=== PATIENT | female | born 1965 | race Caucasian/White ===

== ENCOUNTER 2020-09-01 13:44 | Outpatient (REF) | payer OTHER, SELFPAY ==
--- NOTE | ~2020-09-01 | MM_ITS ---
EXAMINATION: MM SCREENING DIGITAL BREAST TOMOSYNTHESIS, BILATERAL CLINICAL INFORMATION: Screening. Asymptomatic. Remote bilateral reduction mammoplasty over 10 years ago. The lifetime risk of breast cancer based on the Tyrer-Cuzick Model is 5%. COMPARISON: Mammography: 05/28/2019, 07/23/2018, 07/22/2017 TECHNIQUE: Digital breast tomosynthesis is performed in both the craniocaudal and mediolateral oblique views along with computer-aided detection (CAD). Synthesized 2D images are generated from the tomosynthesis. FINDINGS: There are scattered areas of fibroglandular density (ACR BI-RADS breast composition Category b). There is no significant mass or architectural abnormality or abnormal calcifications. Parenchymal pattern is similar to prior studies. There is no developing density. No significant changes. MM/MM tomosynthesis screening BI IMPRESSION: No mammographic evidence of malignancy. ASSESSMENT: BI-RADS 1: Negative RECOMMENDATION: Routine annual mammography screening. This patient's information was entered into a reminder system with a target due date for their next mammogram.
== END 2020-09-01 13:45 | disposition home or self-care (01) ==
LOC: HO.MAMMO 13:44
PROVIDERS: Visit Provider Internal Medicine
DX: Z12.31 Encounter for screening mammogram for malignant neoplasm of breast (principal)
CPT/HCPCS: 77063; 77067

== ENCOUNTER 2021-09-04 13:56 | Outpatient (REF) | payer OTHER, SELFPAY ==
--- NOTE | ~2021-09-04 | MM_ITS ---
EXAMINATION: MM SCREENING DIGITAL BREAST TOMOSYNTHESIS, BILATERAL CLINICAL INFORMATION: Screening. Asymptomatic. Status post breast reduction surgery. The lifetime risk of breast cancer based on the Tyrer-Cuzick Model is 5.1%. COMPARISON: Mammography: September 01, 2020 and studies dating back to March 09, 2012 TECHNIQUE: Digital breast tomosynthesis is performed in both the craniocaudal and mediolateral oblique views along with computer-aided detection (CAD). Synthesized 2D images are generated from the tomosynthesis. FINDINGS: There are scattered areas of fibroglandular density (ACR BI-RADS breast composition Category b). There are no new significant masses, abnormal calcifications, or other abnormalities. Stable postsurgical change from reduction mammoplasty seen. MM/MM tomosynthesis screening BI IMPRESSION: There are no significant changes from prior study. ASSESSMENT: BI-RADS 2: Benign RECOMMENDATION: Routine annual mammography screening. This patient's information was entered into a reminder system with a target due date for their next mammogram.
== END 2021-09-04 13:57 | disposition home or self-care (01) ==
LOC: HO.MAMMO 13:56
PROVIDERS: PCP Internal Medicine; Visit Provider Internal Medicine
DX: Z12.31 Encounter for screening mammogram for malignant neoplasm of breast (principal)
CPT/HCPCS: 77063; 77067

== ENCOUNTER 2022-09-10 13:37 | Outpatient (REF) | payer OTHER, SELFPAY ==
--- NOTE | ~2022-09-10 | MM_ITS ---
EXAMINATION: MM SCREENING DIGITAL BREAST TOMOSYNTHESIS, BILATERAL CLINICAL INFORMATION: Screening. Asymptomatic. Bilateral implants are approximately 6 months ago. Remote prior reduction mammoplasty. The lifetime risk of breast cancer based on the Tyrer-Cuzick Model is 5%. COMPARISON: Mammography: 09/04/2021, 09/01/2020, 05/28/2019 TECHNIQUE: Digital mammography is performed in craniocaudal and mediolateral oblique views along with computer-aided detection (CAD). Digital breast tomosynthesis is performed in implant-displaced craniocaudal and implant-displaced mediolateral oblique views along with computer-aided detection (CAD). Synthesized 2D images are generated from the tomosynthesis. FINDINGS: There are scattered areas of fibroglandular density (ACR BI-RADS breast composition Category b). There are bilateral implants present since prior exam. The implant contours are smooth and unremarkable. Breast parenchyma shows no significant changes. No significant mass or architectural abnormality or abnormal calcifications. The skin contours are smooth. MM/MM tomosynthesis screen imp BI IMPRESSION: -No mammographic evidence of malignancy. -Bilateral implants, new from prior imaging 2021. ASSESSMENT: BI-RADS 2: Benign RECOMMENDATION: Routine annual mammography screening. This patient's information was entered into a reminder system with a target due date for their next mammogram.
== END 2022-09-10 13:38 | disposition home or self-care (01) ==
LOC: HO.MAMMO 13:37
PROVIDERS: PCP Internal Medicine; Visit Provider Internal Medicine
DX: Z12.31 Encounter for screening mammogram for malignant neoplasm of breast (principal)
CPT/HCPCS: 77063; 77067

== ENCOUNTER 2022-09-17 13:47 | Outpatient (REF) | payer OTHER, SELFPAY ==
--- NOTE | ~2022-09-17 | MM_ITS ---
EXAMINATION: BONE DENSITOMETRY CLINICAL INDICATION: Osteoporosis. COMPARISON: None (current study represents initial baseline exam). TECHNIQUE: Using a Predictify DXA System (software version: 13.1) manufactured by [employer], dual-energy x-ray absorptiometry was performed of the lumbar spine and left hip. The images are of good technical quality. Summary results are attached. FINDINGS: AP SPINE L1-L4: BMD 1.122 g/cm2, Z-score 0.8, T-score -0.5, normal. LEFT FEMUR, NECK: BMD 1.102 g/cm2, Z-score 1.8, T-score 0.5, normal. LEFT FEMUR, TOTAL: BMD 0.093 g/cm2, Z-score 1.7, T-score 0.7, normal. IDENTIFIED RISK FACTORS: Height loss, menopause, recurrent falls, secondary osteoporosis, tobacco user (current smoker). HISTORY OF FRACTURE: None listed. MEDICATIONS: None listed. MM/XR DEXA axial skeleton IMPRESSION: 1. DIAGNOSIS: Normal bone density based on the lowest T-score value of -0.5 in the lumbar spine applying World Health Organization criteria. 2. 10-YEAR FRACTURE RISK PREDICTION, FRAX: According to the guidelines, FRAX calculation should only be performed on patients in the osteopenia bone density category. Therefore, FRAX was not performed on this patient. 3. Treatment Recommendations: NOF guidelines recommend consideration for treatment in postmenopausal women and men age 50 and older presenting with the following: -A hip or vertebral (clinical or morphometric) fracture. -T-score less than or equal to -2.5 at the femoral neck or spine after appropriate evaluation to exclude secondary causes. -Low bone mass at the hip or spine and a 10-year fracture probability by FRAX of greater than or equal to 3% for hip fracture or greater than or equal to 20% for major osteoporotic fracture based on the [place] adapted WHO algorithm. 4. Other Recommendations: All treatment decisions require clinical judgment and consideration of individual patient factors, including patient preferences, comorbidities, previous drug use, risk factors not captured in the FRAX model (e.g. frailty, falls, vitamin D deficiency, increased bone turnover, interval significant decline in bone density) and possible under or overestimation of fracture risk by FRAX. FUTURE SCAN RECOMMENDATION: People with diagnosed cases of osteoporosis or at high risk for fracture should have regular bone mineral density tests. For patients eligible for Medicare, routine testing is allowed once every 2 years. The testing frequency can be increased to one year for patients who have rapidly progressing disease, those who are receiving or discontinuing medical therapy to restore bone mass, or have additional risk factors.
== END 2022-09-17 13:48 | disposition home or self-care (01) ==
LOC: HO.MAMMO 13:47
PROVIDERS: PCP Internal Medicine; Visit Provider Internal Medicine
DX: Z13.820 Encounter for screening for osteoporosis (principal); Z78.0 Asymptomatic menopausal state; M81.0 Age-related osteoporosis without current pathological fracture
CPT/HCPCS: 77080

== ENCOUNTER 2024-05-26 14:50 | Outpatient (REF) | payer OTHER, SELFPAY ==
--- OUTSIDE RECORDS SUMMARY | 2024-05-26 14:54 | XMS_ITS | Clinical Summary ---
Author Organization [facility] Address [address] [place] [address] Care Team Providers Care Foundry Patternmaker Name Role Phone Elfego Hewitt MD Primary Care Provider Unavail able Allergies Active Allergy Reactions Criticality Noted Date Comments Sulfa Antibiotics Hives Medium 08/09/2017 Medications Medication Sig Dispensed Refills Start Date End Date Status traZODone (DESYREL) 150 MG tablet 0 04/19/2021 Active lisinopril (PRINIVIL,ZESTRIL) tablet 10 mg 0 04/19/2021 Active atorvastatin (LIPITOR) tablet 20 mg Take 20 mg by mouth daily. 0 03/21/2021 Active minoxidil (LONITEN) 2.5 MG tablet 0 04/05/2021 Active omeprazole (PriLOSEC) 40 MG capsule Take 40 mg by mouth 2 (two) times a day. 0 01/19/2021 Active Family History Medical History Relation Name Comments Diabetes Father Cancer Mother Dementia Mother Diabetes Mother Hypertension Mother Parkinsonism Mother Relation Name Status Comments Father Mother Alive Social History Tobacco Use Types Packs/Day Years Used Date Smoking Tobacco: Never Smokeless Tobacco: Never Alcohol Use Standard Drinks/Week Comments Not Currently 0 (1 standard drink = 0.6 oz pur e alcohol) Sex and Gender Information Value Date Recorded Sex Assigned at Female 04/20/2021 2:34 PM EST Gender Identity Not on file Sexual Orientation Not on file Job Start Date Occupation Industry Not on file Not on file Not on file Last Filed Vital Signs Vital Sign Reading Time Taken Comments Blood Pressure - - Pulse - - Temperature - - Respiratory Rate - - Oxygen Saturation - - Inhaled Oxygen Concentration - - Weight 69.4 kg (153 lb) 04/23/2021 4:00 PM EST Height 152.4 cm (5') 04/23/2021 4:00 PM EST Body Mass Index 29.88 04/23/2021 4:00 PM EST Plan of Treatment Health Maintenance Due Date Last Done Comments Hepatitis B Vaccines (1 of 3 - 3-dose series) 1965 Hepatitis C Screening 1965 COVID-19 Vaccine (#1) 01/27/1968 Depression Screening 1979 BMI Counseling 07/27/1985 Preventative Health Evaluation 07/27/1985 Cervical Cancer Screening (P ap Smear) 07/27/1988 DTap / Tdap / Td (1 - Tdap) 04/28/2010 04/27/2010 Colon Cancer Screening (Colonoscopy) 07/27/2012 Breast Cancer Screening (Mammogram) 07/27/2017 Shingrix-Zoster Vaccine (1 of 2) 07/27/2017 Influenza Vaccine (#1) 2023 Pneumococcal Vaccine Aged Out No long er eligible based on patient's age to complete this topic RSV Ped < 20 months Aged Out No longe r eligible based on patient's age to complete this topic Care Teams Foundry Patternmaker Relationship Specialty Start Date End Date Elfego Hewitt MD PCP - General Internal Medicine 04/23/21
--- OUTSIDE RECORDS SUMMARY | 2024-05-26 14:54 | XMS_ITS | Clinical Summary ---
Author Organization [address] [facility] Address [address] [place] [address] Phone Care Team Providers Care Workforce Manager Name Role Phone Elfego Hewitt MD Primary Care Provider [phone] Allergies Active Allergy Reactions Criticality Noted Date Comments Sulfa (Sulfonamide Antibiotics) 02/05 Medications cholecalciferol (VITAMIN D-3) 1,250 mcg (50,000 unit) capsule TAKE 1 CAPSULE BY MOUTH 1 TIME A WEEK 4 Active omeprazole (PriLOSEC) [address] capsule Take 40 mg by mouth 2 times daily. Active ASCORBIC ACID, VITAMIN C, ORAL Take by mouth. Active NAPROXEN ORAL Take 500 mg by mouth. Active traZODone (DESYREL) 150 mg tablet Take 150 mg by mouth at bedtime. Active multivitamin (MULTIPLE VITAMINS ORAL) Take by mouth. Active vitamin E acetate (VITAMIN E ORAL) Take by mouth. Activ e ALBUTEROL INHL Inhale into the lungs. Active acetaminophen (TYLENOL 8 HOUR) 650 mg 8 hr tablet Take 3,000 mg by mouth. Active albuterol 2.5 mg /3 mL (0.083 %) nebulizer solution USE 3 ML VIA NEBULIZER FOUR TIMES DAILY NEEDED 3 Active amoxicillin (AMOXIL) 500 mg capsule 4 Active oxyCODONE (OXY-IR) 5 mg immediate release capsule Take 1 capsule (5 mg total) by mouth every 6 (six) hours if needed for severe pain for up to 10 doses. Max Daily Amount: 20 mg 10 capsule 5 Active Active Problems Problem Noted Date Diagnosed Date Back pain 02/06/2024 HIV (human immunodeficiency virus infection) 04/2023 Hyperlipidemia 02/06/2024 Overweight (BMI 25.0-29.9) 08/20/2021 DDD (degenerative disc disease), lumbar 07/22/19 21 GERD (gastroesophageal reflux disease) Nephrolithiasis 07/21/2020 Spinal stenosis 07/21/2020 Overview (02/06/2024): Cervical. DDD. Encounters Date Type Department Care Team Description 04/11/2024 10:01 AM EST - 04/11/2024 12:43 PM EST Emergency [facility] Emergency [address] [place] [address] Chronic left-sided low back pain with left-sided sciatica (Primary Dx) Discharge Disposition: Home or Self Care 03/08/2024 3:15 PM EST - 03/08/2024 11:59 PM EST Hospital Encounter [facility] MRI [address] [place] [address] Lumbar disc herniation Discharge Disposition: Home or Self Care from Last 3 Months Surgical History Surgery Date Site/Laterality Comments OTHER SURGICAL HISTORY 09/17/2021 PROCEDURE: ---- OTHER ----; COMMENT: Lap conversion of sleeve to gastric bypass Medical History Medical History Date Comments Hypertension DX:Hypertension Back pain DX:Back pain Insomnia DX:Insomnia Hyperlipidemia DX:Hyperlipidemi a HIV (human immunodeficiency virus infection) ([facility]) DX:HIV (human immunodeficien cy virus infection) ([facility]) Spinal stenosis 07/21/2020 DX:Spinal stenos is; COMMENT: Cervical, DDD Nephrolithiasis 07/21/2020 DX:Nephrolithias is GERD (gastroesophageal reflu x disease) 07/21/2020 DX:GERD (gastroesophageal re flux disease) DDD (degenerative disc disea se), lumbar 07/21/2020 DX:DDD (degenerative disc di sease), lumbar Tobacco use 07/21/2020 DX:Tobacco use Class 1 obesity due to exces s calories with serious comorbidity and body mass index (BMI) of 31.0 to 31.9 in adult 04/19/2020 DX:Class 1 obesity due to ex cess calories with serious comorbidity and body mass index (BMI) of 31.0 to 31.9 in adult; COMMENT: LABS: 03/14/20 PSYCH: 02/28/20 PCP/PHYSICAL: NUTRITION CLEARANCE: READY TO SUBMIT: SURGERY: Hx of bariatric surgery 09/17/2021 DX:Hx of bariatric surgery Family History Medical History Relation Name Comments Diabetes Father Alcohol abuse Dementia Mother Diabetes Mother Hypertension Mother Other: cancer of the large intestinew Mother Parkinson's Disease Mother Relation Name Status Comments Father Mother Alive Social History Tobacco Use Types Packs/Day Years Used Date Smoking Tobacco: Former Smokeless Tobacco: Never Alcohol Use Standard Drinks/Week Comments Yes 0 (1 standard drink = 0.6 oz pur e alcohol) Comments Unknown Sex and Gender Information Value Date Recorded Sex Assigned at Female 04/11/2024 8:51 AM EST Legal Sex Female 6:50 PM EST Gender Identity Female 04/11/2024 8:51 AM EST Sexual Orientation Not on file Obstetrics History Last Filed Vital Signs Vital Sign Reading Time Taken Comments Blood Pressure 115/73 04/11/2024 12:19 PM EST Pulse 67 04/11/2024 12:19 PM EST Temperature 36.6 ??C (97.9 ??F) 04/11/2024 12:[address] Respiratory Rate 17 04/11/2024 12:19 PM EST Oxygen Saturation 98% 04/11/2024 12:19 PM EST Inhaled Oxygen Concentration - - Weight 54 kg (119 lb) 04/11/2024 6:43 AM EST Height 152.4 cm (5') 04/11/2024 6:43 AM EST Body Mass Index 23.24 04/11/2024 6:43 AM EST Plan of Treatment Upcoming Encounters Date Type Department Care Team (Late st Contact Info) Description 06/01/2024 2:15 PM EST Office Visit Bariatric Surgery [facility] [address] [phone] Sulema Abad MD [address] [address] 09/09/2024 2:00 PM EDT Office Visit Bariatric Surgery [facility] [address] [phone] Sulema Abad MD 175 [facility] [address] [place] [address] Health Maintenance Due Date Last Done Comments Breast Cancer Screening 1965 Meningococcal ACWY Vaccine (1 - Risk 2-dose series) 07/27/1969 MMR Vaccines (1 of 2 - Risk 2-dose series) 07/27/1985 Hepatitis A Vaccines (1 of 2 - Risk 2-dose series) 07/27/1986 Hepatitis B Vaccines (1 of 3 - 19+ 3-dose series) 07/27/1986 Cervical Cancer Screening: Pap Smear 07/27/1988 Pneumococcal Vaccine: 50+ Years (2 of 2 - PCV) 10/03/2017 10/03/2016 Pneumococcal Vaccine: Pediatrics (0 to 5 Years) and At-Risk Patients (6 to 64 Years) (2 of 2 - PCV) 10/03/2017 10/03/2016 DTaP,Tdap,and Td Vaccines (2 - Td or Tdap) 04/27/2020 04/27/2010 COVID-19 Vaccine (3 - Pfizer risk series) 01/02/2021 12/05/2020, 11/14/2020 Colorectal Cancer Screening: Colonoscopy 03/09/2022 Depression Screening 03/09/2022 Hepatitis C Screening 03/09/2022 Social Influencers of Health Screening 03/09/2022 Cholesterol Screening (Lipid Panel) 03/14/2025 03/14/2020 Zoster Vaccines Completed 06/11/2023, 02/19/2023 Influenza Vaccine Completed 02/04/2024, , 02/15/2021, Additional history exists HIB Vaccines Aged Out No longer eligi ble based on patient's age to complete this topic HPV Vaccines Aged Out No longer eligi ble based on patient's age to complete this topic IPV Vaccines Aged Out No longer eligi ble based on patient's age to complete this topic Meningococcal B Vacine Aged Out No lo nger eligible based on patient's age to complete this topic RSV Immunization Patients Under 20 months Aged Out No longer eligible based on patient's age to complete this topic Varicella Vaccines Aged Out No longer eligible based on patient's age to complete this topic Procedures Procedure Name Priority Date/Time Associated Diagnosis Comments XR HIP 2-3 VIEWS LEFT STAT 04/11/2024 11:38 AM EST MR LUMBAR SPINE WO CONTRAST Routine 03/08/2024 3:55 PM EST Lumbar disc herniation LIPID PANEL Routine 03/14/2020 from Last 3 Months or Most Recently Relevant to Health Maintenance Results * XR Hip 2-3 Views Left (04/11/2024 11:38 AM EST) Anatomical Region Laterality Modality Lower Extremities, Hip Left Radiograp hic Imaging 04/11/2024 11:5 8 AM EST Impressions 04/11/2024 11:59 AM EST FINDINGS/IMPRESSION: No acute fracture or dislocation. ??Small corticated fragment adjacent to the left acetabulum, most likely related to old injury. ??Joint spaces are preserved. ??Degenerative changes seen at the sacroiliac joints. ??Mild soft tissue swelling lateral to the left hip. -------- FINAL REPORT -------- Dictated By: NAY STARKEY Dictated Date: 04/11/2024 11:58 ET Assigned Physician: NAY STARKEY Reviewed and Electronically Signed By: NAY STARKEY Signed Date: 04/11/2024 11:59 ET Workstation ID: [id number] Transcribed By: Self Edit Transcribed Date: 04/11/2024 11:58 ET Narrative 04/11/2024 11:59 AM EST XR HIP 2-3 VIEWS LEFT INDICATION: ??Pain TECHNIQUE: XR HIP 2-3 VIEWS LEFT COMPARISON: No priors available. Procedure Note Nay Starkey MD - 04/11/2024 XR HIP 2-3 VIEWS LEFT INDICATION: Pain TECHNIQUE: XR HIP 2-3 VIEWS LEFT COMPARISON: No priors available. IMPRESSION: FINDINGS/IMPRESSION: No acute fracture or dislocation. Small corticatedfragment adjacent to the left acetabulum, most likely related to oldinjury. Joint spaces are preserved. Degenerative changes seen at thesacroiliac joints. Mild soft tissue swelling lateral to the left hip. -------- FINAL REPORT -------- Dictated By: NAY STARKEY Dictated Date: 04/11/2024 11:58 ET Assigned Physician: NAY STARKEY Reviewed and Electronically Signed By: NAY STARKEY Signed Date: 04/11/2024 11:59 ET Workstation ID: [id number] Transcribed By: Self Edit Transcribed Date: 04/11/2024 11:58 ET Antonio AC IMG XR PROCEDURES Final Res ult * MR Lumbar Spine wo Contrast (03/08/2024 3:55 PM EST) Anatomical Region Laterality Modality L-spine, Spine Magnetic Resonan ce 03/09/2024 4:50 AM EST Impressions 03/09/2024 5:03 AM EST Multilevel lumbar spondylosis, as above, most prominent at L3-L4, L4-L5 and L5- S1; progressed from 2018. -------- FINAL REPORT -------- Dictated By: Samina Parsons Dictated Date: 03/09/2024 04:50 ET Assigned Physician: Samina Parsons Reviewed and Electronically Signed By: Samina Parsons Signed Date: 03/09/2024 05:03 ET Workstation ID: [id number] Transcribed By: Self Edit Transcribed Date: 03/09/2024 04:50 ET Narrative 03/09/2024 5:03 AM EST INDICATION: low back pain, disc herniation COMPARISON: ??August 2017 TECHNIQUE: Multiplanar, multisequence MRI was performed of the lumbar spine without IV contrast. FINDINGS: ?? Study assumes 5 lumbar type vertebral bodies. ??Grade 1 anterolisthesis of L4 on L5; slightly progressed from 2018. ??Normal grade 1 retrolisthesis of L2 on L3; new from prior. ??Left convex lumbar curvature with apex centered at L2-L3. ??Vertebral body heights are maintained. ??Conus terminates at L1. ??Bone marrow and cord signal is unremarkable. ??Multilevel disc desiccation extending from L2-S1. ??Specific findings are seen at the following levels: T12-L1:No significant spinal canal stenosis or neural foraminal narrowing seen on sagittal views. L1-L2:No significant spinal canal stenosis or neural foraminal narrowing seen on sagittal views. L2-L3:Mild diffuse disc bulge eccentric to the left and mild bilateral facet arthropathy which results in mild bilateral neural foraminal narrowing (left greater than right) with touching of the exiting left L2 nerve root; similar to prior. ??No significant spinal canal stenosis. L3-L4:Diffuse disc bulge with facet arthropathy which effaces the ventral thecal thecal sac and results in mild to moderate bilateral neural foraminal narrowing; progressed from prior. L4-L5:Uncovering of the disc with severe bilateral facet arthropathy and ligamentum flavum infolding which effaces the ventral thecal sac and results in mild spinal canal stenosis; progressed from prior and moderate bilateral neural foraminal narrowing and touches both exiting L4 nerve roots. L5-S1:Diffuse disc bulge with superimposed central disc protrusion and small annular fissure with bilateral facet arthropathy which results in moderate bilateral neural foraminal narrowing; progressed from prior. Miscellaneous: ??Visualized SI joints, paraspinal muscles and retroperitoneum are unremarkable. Procedure Note Samina Parsons MD - 03/09/2024 INDICATION: low back pain, disc herniation COMPARISON: August 2017 TECHNIQUE: Multiplanar, multisequence MRI was performed of the lumbarspine without IV contrast. FINDINGS: Study assumes 5 lumbar type vertebral bodies. Grade 1 anterolisthesis ofL4 on L5; slightly progressed from 2018. Normal grade 1 retrolisthesis ofL2 on L3; new from prior. Left convex lumbar curvature with apex centeredat L2-L3. Vertebral body heights are maintained. Conus terminates at L1.Bone marrow and cord signal is unremarkable. Multilevel disc desiccationextending from L2-S1. Specific findings are seen at the followinglevels: T12-L1:No significant spinal canal stenosis or neural foraminal narrowingseen on sagittal views. L1-L2:No significant spinal canal stenosis or neural foraminal narrowingseen on sagittal views. L2-L3:Mild diffuse disc bulge eccentric to the left and mild bilateralfacet arthropathy which results in mild bilateral neural foraminalnarrowing (left greater than right) with touching of the exiting left [id number] root; similar to prior. No significant spinal canal stenosis. L3-L4:Diffuse disc bulge with facet arthropathy which effaces the ventralthecal thecal sac and results in mild to moderate bilateral neuralforaminal narrowing; progressed from prior. L4-L5:Uncovering of the disc with severe bilateral facet arthropathy andligamentum flavum infolding which effaces the ventral thecal sac andresults in mild spinal canal stenosis; progressed from prior and moderatebilateral neural foraminal narrowing and touches both exiting L4 nerveroots. L5-S1:Diffuse disc bulge with superimposed central disc protrusion andsmall annular fissure with bilateral facet arthropathy which results inmoderate bilateral neural foraminal narrowing; progressed from prior. Miscellaneous: Visualized SI joints, paraspinal muscles andretroperitoneum are unremarkable. IMPRESSION: Multilevel lumbar spondylosis, as above, most prominent at L3-L4, L4-L5and L5- S1; progressed from 2018. -------- FINAL REPORT -------- Dictated By: Samina Parsons Dictated Date: 03/09/2024 04:50 ET Assigned Physician: Samina Parsons Reviewed and Electronically Signed By: Samina Parsons Signed Date: 03/09/2024 05:03 ET Workstation ID: [id number] Transcribed By: Self Edit Transcribed Date: 03/09/2024 04:50 ET Elfego Hewitt MD IMG MRI PROCEDURES Final Resul t * (ABNORMAL) Lipid panel (03/14/2020) LDL/HDL Ratio 6(A) 0 - 4 Triglycerides 164(A) 0 - 150 mg/dL Cholesterol 283(A) 0 - 200 mg/dL HDL 49 >=40 mg/dL LDL Cholesterol 202(A) 0 - 100 mg/dL Blood Venous blood specimen / Unknown Historical Provider LAB BLOOD ORDERABLES Rose l Result from Last 3 Months or Most Recently Relevant to Health Maintenance Insurance [facility] [employer] [place] [id number] Care Teams Workforce Manager Relationship Specialty Start Date End Date Elfego Hewitt MD [address] [place] [phone] PCP - General Internal Medicine 02/17/24
== END 2024-05-26 14:51 | disposition home or self-care (01) ==
LOC: HO.MAMMO 14:50
PROVIDERS: PCP Internal Medicine; Visit Provider Internal Medicine
DX: Z12.31 Encounter for screening mammogram for malignant neoplasm of breast (principal)
CPT/HCPCS: 77063; 77067

== ENCOUNTER → 2024-05-26 15:15 | Outpatient (BNV) | payer OTHER, SELFPAY | PROVIDERS: PCP Internal Medicine; Visit Provider Internal Medicine | DX: Z12.31 Encounter for screening mammogram for malignant neoplasm of breast (principal) | CPT/HCPCS: 77063; 77067 ==